=== PATIENT | female | born 2000 | race Caucasian/White ===

== ENCOUNTER 2018-01-08 08:09 | Emergency (ER) | payer OTHER ==
[2018-01-08 08:42] LABS: BILIRUBIN,URINE NEGATIVE (NEGATIVE); GLUCOSE, URINE (UA) NEGATIVE (NEGATIVE); KETONES,URINE (UA) TRACE mg/dL (NEGATIVE); LEUKOCYTE ESTERASE, URINE NEGATIVE (NEGATIVE); NITRITE,URINE NEGATIVE (NEGATIVE); OCCULT BLOOD,URINE NEGATIVE (NEGATIVE); PH,URINE 6.5 PH (5.0-7.5); PROTEIN,URINE NEGATIVE (NEGATIVE); UROBILINOGEN,URINE 0.2 (NORMAL) E.U./dL (NORMAL)
[2018-01-08 08:46] LABS: CLARITY,URINE HAZY (CLEAR); HCG UR QUAL NEGATIVE
[2018-01-08 08:54] LABS: BACTERIA,URINE Many /HPF (None Seen); MUCUS,URINE Marked Strands; RBC,URINE 0-5 /HPF (0-5); SQUAMOUS EPITHELIAL CELL,UR MANY Squamous (<= Few)
[2018-01-08 09:27] LABS: BASOPHILS # (AUTO) 0.1 10^3/uL (0.0-0.1); BASOPHILS % (AUTO) 0.7 %; EOSINOPHILS # (AUTO) 0.1 10^3/uL (0.0-0.7); EOSINOPHILS % (AUTO) 1.2 %; HGB - HEMOGLOBIN 12.7 g/dL (12.0-16.0); LYMPHOCYTES # (AUTO) 1.3 10^3/uL (1.5-3.5); LYMPHOCYTES % (AUTO) 13.2 %; MEAN CORPUSCULAR HEMOGLOBIN 30.9 pg (27.0-31.0); MEAN CORPUSCULAR HGB CONC 34.2 g/dL (32.0-36.0); MEAN CORPUSCULAR VOLUME 90.3 fL (81.0-99.0); MEAN PLATELET VOLUME 8.6 fL (7.9-10.8); MONOCYTES # (AUTO) 0.6 10^3/uL (0.0-1.0); MONOCYTES % (AUTO) 6.5 %; NEUTROPHILS # (AUTO) 7.6 10^3/uL (1.5-6.6); NEUTROPHILS % (AUTO) 78.4 %; PLT - PLATELET COUNT 230 10^3/uL (130-450); RED BLOOD COUNT 4.11 10^6/uL (4.20-5.40); RED CELL DISTRIBUTION WIDTH 12.7 % (12.0-15.0); WHITE BLOOD COUNT 9.7 x10^3/uL (4.8-10.8)
[2018-01-08 09:40] LABS: ALBUMIN 4.2 g/dL (3.2-5.5); ALBUMIN/GLOBULIN RATIO 1.2 (1.0-2.2); BILIRUBIN,TOTAL 0.6 mg/dL (0.2-1.0); CALCIUM 9.1 mg/dL (8.5-10.3); CREATININE 0.5 mg/dL (0.4-1.0); TOTAL PROTEIN 7.6 g/dL (6.7-8.2)
[2018-01-08] MEDS ORDERED: FAMOTIDINE 20 MG TABLET PO STA (09:41)
[2018-01-08] MEDS ORDERED: MAG HYDROX/AL HYDROX/SIMETH 30 ML UDC PO STA (09:41)
[2018-01-08] MEDS ORDERED: LIDOCAINE VISCOUS 2% 15 ML UDC MM STA (09:41)
--- NOTE | 2018-01-08 09:44 | ED Physician Documentation ---
History of Present Illness - Stated complaint Stated Complaint: ABD PX - Chief complaint Chief Complaint: Abd Pain - Additonal information Additional information: hx from pt 17 y/io f [place] to ER with upper abd pain today little worse with position hx GERD but this is different pain is stabbing was severe now mild no rad to chest back or shoulders no NVD Review of Systems Constitutional: denies: Fever, Chills Cardiac: denies: Chest pain / pressure Respiratory: denies: Dyspnea GI: reports: Abdominal Pain. denies: Nausea, Vomiting, Diarrhea Endocrine: denies: Easy bruising / bleeding Immunocompromised: denies: Immunocompromised PD PAST MEDICAL HISTORY - Past Surgical History Past Surgical History: No - Present Medications Home Medications: Ambulatory Orders Medication Instructions Recorded Confirmed No Known Home Medications [No 01/08/18 01/08/18 Known Home Medications] - Allergies Allergies/Adverse Reactions: Allergies Allergy/AdvReac Type Severity Reaction Status Date / Time No Known Drug Allergies Allergy Verified 01/08/18 08:26 - Social History Does the pt smoke?: No Smoking Status: Never smoker - Immunizations Immunizations are current?: Yes PD ED PE NORMAL - Vitals Vital signs reviewed: Yes - General General: Alert and oriented X 3 - HEENT HEENT: PERRL - Neck Neck: Supple, no meningeal sign - Cardiac Cardiac: RRR - Respiratory Respiratory: No respiratory distress, Clear bilaterally - Abdomen Abdomen: Soft, Other (mod TTP uper abd questionable murphys) - Derm Derm: Normal color - Extremities Extremities: No deformity - Neuro Neuro: Alert and oriented X 3 Results - Vitals Vitals: Vital Signs - 24 hr 01/08/18 01/08/18 08:21 13:53 Temperature 36.7 C 37.3 C Heart Rate 98 88 Respiratory 17 20 Rate Blood Pressure 125/71 121/73 O2 Saturation 100 100 Oxygen O2 Source Room air - Labs Labs: Laboratory Tests 01/08/18 01/08/18 01/08/18 08:20 09:19 09:19 WBC 9.7 RBC 4.11 L Hgb 12.7 Hct 37.1 MCV 90.3 MCH 30.9 MCHC 34.2 RDW 12.7 Plt Count 230 MPV 8.6 Neut # 7.6 H Lymph # 1.3 L [place] # 0.6 Eos # 0.1 Baso # 0.1 Absolute Nucleated RBC 0.01 Nucleated RBC % 0.1 Sodium 137 Potassium 3.8 Chloride 104 Carbon Dioxide 25 Anion Gap 8.0 BUN 5 L Creatinine 0.5 Estimated GFR (MDRD) 159 Glucose 103 H Calcium 9.1 Total Bilirubin 0.6 AST 17 ALT 12 Alkaline Phosphatase 60 Total Protein 7.6 Albumin 4.2 Globulin 3.4 Albumin/Globulin Ratio 1.2 Lipase 17 L Urine Color YELLOW Urine Clarity HAZY Urine pH 6.5 Ur Specific [place] 1.020 Urine Protein NEGATIVE Urine Glucose (UA) NEGATIVE Urine Ketones TRACE Urine Occult Blood NEGATIVE Urine Nitrite NEGATIVE Urine Bilirubin NEGATIVE Urine Urobilinogen 0.2 (NORMAL) Ur Leukocyte Esterase NEGATIVE Urine RBC 0-5 Urine WBC 4-5 Ur Squamous Epith Cells MANY Squamous H Urine Bacteria Many H Urine Mucus Marked Strands Ur Microscopic Review INDICATED Urine Culture Comments NOT INDICATED Urine HCG, Qual NEGATIVE - Rads (name of study) abd sono Radiology: See rad report (+ gallstones, no pericholecystic fluid or wall thickening, slightly dilated CBD but no choledocholithiasis noted) PD MEDICAL DECISION MAKING - ED course ED course: long ER stay 2/2 delay for sono sono does show gallstones dilated CBD but no choledocholithiasis, no fever, nl bili, pain has subsided feel safe to dc hoem with close outpt follwo up for elective misty pt is [place] so have number for our surgical clinic but will need to contact [facility] for [place] referral Departure - Departure Disposition: 01 Home, Self Care Clinical Impression: Biliary colic Condition: Good Instructions: ED Gallstone W Biliary Colic Follow-Up: Dieter Dickson MD [Provider Admit Priv/Credential] - [facility] [Provider Group] Comments: You have gallstone Your gallbladder is not infected so you do not need to be admitted to the hospital . But you will probably need to have surgery to take out the gallbladder. I have given you the name of one of our surgeons - but because you are [place], you need to see your base medical to get a referral In the mean time you need to stay on a strictly low fat diet to prevent aggravating the gallbladder. Return if worse - fever, severe pain, yellow skin or eyes etc
--- NOTE | 2018-01-08 13:31 | Ultrasound Report ---
RIGHT UPPER QUADRANT ULTRASOUND: 01/08/2018 CLINICAL INDICATION: Postprandial pain. TECHNIQUE: Real-time scanning was performed with sales representative aircraft static images obtained. FINDINGS: The liver measures 13 cm. Hepatic echotexture appears unremarkable. No intrahepatic biliary dilatation or focal parenchymal lesion is appreciated. The common bile duct is mildly prominent, measuring up to 8 mm. Multiple calculi are seen in the gallbladder. No wall thickening or pericholecystic fluid is present. The right kidney measures 10.2 cm, and demonstrates no hydronephrosis. No free fluid is present. IMPRESSION: CHOLELITHIASIS, WITH MILD BILIARY PROMINENCE. TD: 01/08/2018 13:30
[2018-01-08 13:54] VITALS: BP 121/73
== END 2018-01-08 14:23 | disposition home or self-care (01) ==
LOC: ED 08:09
DX: K80.50 Calculus of bile duct without cholangitis or cholecystitis without obstruction (principal)
CPT/HCPCS: 36415; 76705; 80053; 81001; 81025; 83690; 85025; 99283; A9270; 81003; 87086

== ENCOUNTER 2018-04-13 13:28 | Emergency (ER) | payer OTHER ==
--- NOTE | 2018-04-13 14:36 | ED Physician Documentation ---
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 She has been dealing with daily gallbladder pain for the last 3 months, worse after eating, it starts about 15 minutes after eating and it is an epigastric pain that is nonradiating. She has not lost any weight with it but she now feels like she cannot eat anything. She has been having a lot of trouble getting the appropriate referral to a surgeon from her flight surgeon. She declines pain medication on my initial evaluation) Review of Systems Ten Systems: 10 systems reviewed and negative Constitutional: denies: Fever, Chills Cardiac: reports: Reviewed and negative Respiratory: reports: Reviewed and negative GI: denies: Abdominal Swelling, Vomiting, Diarrhea PD PAST MEDICAL HISTORY - Past Medical History Past Medical History: No - Past Surgical History Past Surgical History: No - Present Medications Home Medications: Ambulatory Orders Medication Instructions Recorded Confirmed HYDROcod/ACETAM 5/325 [[place] 5/325] 1 - 2 ea PO Q6H PRN #15 tablet 04/13/18 - Allergies Allergies/Adverse Reactions: Allergies Allergy/AdvReac Type Severity Reaction Status Date / Time No Known Drug Allergies Allergy Verified 01/08/18 08:26 - Social History Does the pt smoke?: No Smoking Status: Never smoker Does the pt drink ETOH?: No Does the pt have substance abuse?: No - Immunizations Immunizations are current?: Yes PD ED PE NORMAL - Vitals Vital signs reviewed: Yes - General General: Alert and oriented X 3, No acute distress - Cardiac Cardiac: RRR, No murmur - Respiratory Respiratory: No respiratory distress, Clear bilaterally - Abdomen Abdomen: Normal bowel sounds, Soft, Non tender - Extremities Extremities: No edema, No calf tenderness / cord - Neuro Neuro: Alert and oriented X 3, Normal speech Results - Vitals Vitals: Vital Signs - 24 hr 04/13/18 13:48 Temperature 36.8 C Heart Rate 87 Respiratory 16 Rate Blood Pressure 121/74 O2 Saturation 99 Oxygen O2 Source Room air - Labs Labs: Laboratory Tests 04/13/18 04/13/18 04/13/18 14:40 14:40 15:04 WBC 5.7 RBC 4.56 Hgb 14.2 Hct 42.2 MCV 92.5 MCH 31.1 H MCHC 33.6 RDW 12.5 Plt Count 266 MPV 9.4 Neut # (Auto) 3.3 Lymph # (Auto) 2.0 [place] # (Auto) 0.4 Eos # (Auto) 0.1 Baso # (Auto) 0.0 Absolute Nucleated RBC 0.00 Nucleated RBC % 0.1 Sodium 139 Potassium 3.5 Chloride 105 Carbon Dioxide 28 Anion Gap 6.0 BUN 6 Creatinine 0.6 Estimated GFR (MDRD) 129 Glucose 105 H Calcium 9.4 Total Bilirubin 0.4 AST 19 ALT 16 Alkaline Phosphatase 60 Total Protein 8.2 Albumin 4.1 Globulin 4.1 Albumin/Globulin Ratio 1.0 Lipase 60 H Urine Color YELLOW Urine Clarity HAZY Urine pH 8.5 H Ur Specific [place] 1.015 Urine Protein NEGATIVE Urine Glucose (UA) NEGATIVE Urine Ketones NEGATIVE Urine Occult Blood NEGATIVE Urine Nitrite POSITIVE H Urine Bilirubin NEGATIVE Urine Urobilinogen 0.2 (NORMAL) Ur Leukocyte Esterase NEGATIVE Urine RBC None Seen Urine WBC 4-5 Ur Squamous Epith Cells RARE Squamous Urine Bacteria Moderate H Ur Microscopic Review INDICATED Urine Culture Comments INDICATED Urine HCG, Qual NEGATIVE PD MEDICAL DECISION MAKING - ED course ED course: 17-year-old with daily gallbladder colic and difficulty getting a referral. We will check some labs but at least clinically does not seem to have an indication for emergent surgery. I will try to [place] help her arrange for the appropriate referral. I spoke with Dr. 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 I also discussed the case by phone with Dr. Ventura Mata, the on-call general surgeon here in light of the very mildly elevated lipase who felt this was appropriate to be an outpatient procedure. The patient was frustrated by this, but understands what she needs to do for follow-up. Of note regarding her urinalysis, she has no symptoms of UTI, no dysuria, frequency, or flank pain. - Sepsis Event Vital Signs: Vital Signs - 24 hr 04/13/18 13:48 Temperature 36.8 C Heart Rate 87 Respiratory 16 Rate Blood Pressure 121/74 O2 Saturation 99 Oxygen O2 Source Room air Departure - Departure Disposition: 01 Home, Self Care Clinical Impression: Biliary colic Condition: Good Instructions: ED Gallstone W Biliary Colic Prescriptions: HYDROcod/ACETAM 5/325 [[place] 5/325] 1 - 2 ea PO Q6H PRN #15 tablet PRN Reason: Pain Comments: Today I spoke with Dr. Mane, who is a flight surgeon [place], he confirmed that your flight surgeon is on leave, but you can follow-up with him to get squared away. Call the [facility] today to make an appointment with him, make sure the guest services lead is aware that we spoke with him today.
[2018-04-13 14:57] LABS: BASOPHILS % (AUTO) 0.5 %; EOSINOPHILS # (AUTO) 0.1 10^3/uL (0.0-0.7); HGB - HEMOGLOBIN 14.2 g/dL (12.0-16.0); LYMPHOCYTES % (AUTO) 34.2 %; MEAN CORPUSCULAR HEMOGLOBIN 31.1 pg (27.0-31.0); MEAN CORPUSCULAR HGB CONC 33.6 g/dL (32.0-36.0); MEAN CORPUSCULAR VOLUME 92.5 fL (81.0-99.0); MEAN PLATELET VOLUME 9.4 fL (7.9-10.8); MONOCYTES # (AUTO) 0.4 10^3/uL (0.0-1.0); MONOCYTES % (AUTO) 7.3 %; NEUTROPHILS # (AUTO) 3.3 10^3/uL (1.5-6.6); PLT - PLATELET COUNT 266 10^3/uL (130-450); RED BLOOD COUNT 4.56 10^6/uL (4.20-5.40); RED CELL DISTRIBUTION WIDTH 12.5 % (12.0-15.0); WHITE BLOOD COUNT 5.7 x10^3/uL (4.8-10.8)
[2018-04-13 15:12] LABS: ALBUMIN 4.1 g/dL (3.2-5.5); BILIRUBIN,TOTAL 0.4 mg/dL (0.2-1.0); CALCIUM 9.4 mg/dL (8.5-10.3); CREATININE 0.6 mg/dL (0.4-1.0); TOTAL PROTEIN 8.2 g/dL (6.7-8.2)
[2018-04-13 15:16] LABS: BILIRUBIN,URINE NEGATIVE (NEGATIVE); GLUCOSE, URINE (UA) NEGATIVE (NEGATIVE); KETONES,URINE (UA) NEGATIVE (NEGATIVE); LEUKOCYTE ESTERASE, URINE NEGATIVE (NEGATIVE); NITRITE,URINE POSITIVE (NEGATIVE); OCCULT BLOOD,URINE NEGATIVE (NEGATIVE); PH,URINE 8.5 PH (5.0-7.5); PROTEIN,URINE NEGATIVE (NEGATIVE); UROBILINOGEN,URINE 0.2 (NORMAL) E.U./dL (NORMAL)
[2018-04-13 15:19] LABS: CLARITY,URINE HAZY (CLEAR); HCG UR QUAL NEGATIVE
[2018-04-13 15:28] LABS: BACTERIA,URINE Moderate /HPF (None Seen); RBC,URINE None Seen /HPF (0-5); SQUAMOUS EPITHELIAL CELL,UR RARE Squamous (<= Few)
[2018-04-13 15:38] VITALS: BP 136/95
== END 2018-04-13 15:46 | disposition home or self-care (01) ==
LOC: ED 13:28
DX: K80.50 Calculus of bile duct without cholangitis or cholecystitis without obstruction (principal)
CPT/HCPCS: 36415; 80053; 81001; 81003; 81025; 83690; 85025; 87086; 87181; 99283

== ENCOUNTER 2018-05-17 06:11 | Day surgery (SDC) | payer OTHER ==
[2018-05-17] MEDS ORDERED: ceFAZolin 2 GM/50 ML 2 GM/50 ML BAG IV ONE (06:41)
[2018-05-17] MEDS ORDERED: LACTATED RINGERS 1,000 ML IV ONE ×2 (07:17→10:20)
[2018-05-17] MEDS ORDERED: BUPIVACAINE 0.5%-EPI 1:200000 PF 30 ML VIAL ONE (07:27)
[2018-05-17] MEDS ORDERED: IOTHALAMATE MEGLUMINE 50 ML VIAL ONE (07:30)
[2018-05-17 07:31] LABS: HCG UR QUAL NEGATIVE
[2018-05-17] MEDS ORDERED: ROCURONIUM 50 MG/5 ML VIAL IVP ONE (08:00)
[2018-05-17] MEDS ORDERED: PROPOFOL 200 MG/20 ML VIAL IVP ONE (08:00)
[2018-05-17] MEDS ORDERED: GLYCOPYRROLATE 1 MG/5 ML VIAL IVP ONE (08:00)
[2018-05-17] MEDS ORDERED: ONDANSETRON 4 MG/2 ML VIAL IVP ONE (08:00)
[2018-05-17] MEDS ORDERED: LIDOCAINE-MPF 2% 5 ML VIAL IM ONE (08:00)
[2018-05-17] MEDS ORDERED: KETOROLAC 30 MG/ML VIAL IVP ONE (08:00)
[2018-05-17] MEDS ORDERED: DEXAMETHASONE 4 MG/ML VIAL IVP ONE (08:00)
[2018-05-17] MEDS ORDERED: NEOSTIGMINE 1 MG/1 ML 10 ML MDV IVP ONE (08:00)
[2018-05-17] MEDS ORDERED: MIDAZOLAM 2 MG/2 ML VIAL IVP ONE (08:00)
[2018-05-17] MEDS ORDERED: fentaNYL 100 MCG/2 ML VIAL IVP ONE (08:00)
[2018-05-17] MEDS ORDERED: BUPIVACAINE 0.5% PF 30 ML VIAL INFIL ONE ×2 (08:09)
[2018-05-17] MEDS ORDERED: IOTHALAMATE MEGLUMINE 50 ML VIAL IVP ONE ×2 (08:21)
--- NOTE | 2018-05-17 11:09 | XRAY Report ---
Procedure Date: 05/17/2018 Accession Number: [id number] / [id number] Procedure: [place] - OR Cholangiogram CPT Code: FULL RESULT: EXAM: OR Cholangiogram DATE: 05/17/2018 9:08 AM CLINICAL HISTORY: CHOLECYSTITIS COMPARISON: None. TECHNIQUE: Dr. Shubham Mata performed the procedure. Please see the operative notes for details. Fluoroscopic exposure time: 0.24 minutes. Number of fluoroscopic images: 4. IMPRESSION: A catheter has been placed into the cystic duct remnant following cholecystectomy. Cholangiography shows opacification of the proximal bile ducts. Visualized ducts show no filling defects. Note is made of a subjectively enlarged caliber common bile duct; images are not calibrated for measurements. Spill of contrast into the duodenum documented. RADIA
[2018-05-17 11:28] VITALS: BP 115/65
--- NOTE | 2018-05-17 11:49 | OPERATIVE REPORT ---
DATE OF SERVICE: 05/17/2018 Physician: Shubham Mata MD PREOPERATIVE DIAGNOSIS: Symptomatic gallbladder disease. POSTOPERATIVE DIAGNOSIS: Symptomatic gallbladder disease. PROCEDURE PERFORMED: Laparoscopic cholecystectomy with intraoperative cholangiogram. ANESTHESIA: General endotracheal by Octavio Singleton CRNA. SURGEON: Shubham Mata MD ESTIMATED BLOOD LOSS: Minimal. DRAINS: None. COMPLICATIONS: None. FINDINGS: Laparoscopy revealed normal-appearing liver, stomach and visualized portion of small and large bowel. The gallbladder was seen to have mild pericholecystic adhesions. The cystic duct was of normal caliber. The common duct appeared to be dilated and approximately a centimeter in diameter. Following resection, the gallbladder was seen to contain approximately twenty 10 mm multifaceted mixed cholesterol stones. Cystic duct cholangiography was notable for free flow of contrast into the duodenum. No filling defects, and no other anatomic abnormalities. INDICATIONS: The patient is a 17-year-old woman with 6-month history of postprandial epigastric abdominal pain. Evaluations included ultrasonography showing presence of cholelithiasis and a borderline dilated common bile duct at 8 mm. She was felt to be suffering from symptomatic cholelithiasis, and advised undergo laparoscopic cholecystectomy with possible cholangiogram. TECHNIQUE: After informed consent, the patient was taken to the operating room where she was placed under general endotracheal anesthesia. Preoperative preparation included application of sequential calf compression boots, administration of 2 grams cefazolin intravenously within an hour of the incision. Her abdomen was prepared with ChloraPrep solution and draped in the usual sterile fashion. Transverse incision made along the inferior edge of the umbilicus and carried down through the layers of the abdominal wall, until the peritoneum was identified and entered sharply. A 10 mm [place] cannula was inserted. Pneumoperitoneum was achieved with carbon dioxide , and a 10 mm 30-degree Honorio telescope was inserted. Laparoscopy was carried out. Findings noted above. Three additional 5 mm ports were placed in the right upper quadrant. Instruments were passed. The gallbladder was grasped and retracted in a cephalad and lateral direction exposing the cystic triangle of [place]. This region was carefully dissected using Hook electrocautery, isolating the cystic duct and artery adjacent to the gallbladder. The critical view of safety was obtained. The cystic duct was clipped at its junction with the gallbladder. An incision made distal to the clip in the cystic duct. A [place] cholangiogram catheter was inserted, and cholangiography was carried out using a 50:50 combination of [place] in sterile saline. Quality of the study was good. There were no apparent complications. Approximately 20 mL of the mixture was used. Findings were as noted above. The cholangiogram catheter was then removed. Cystic duct triply clipped distally doubly proximally and divided between, completely at the point of incision. The cystic artery was also divided between two sets of clips. The gallbladder was excised from the liver bed using electrocautery for dissection and hemostasis. It was detached intact, placed in an organ retrieval bag, extracted and sent for pathologic evaluation. After hemostasis was assured, the right upper quadrant was copiously irrigated with saline solution, following which instruments and cannulas were removed under direct vision. Pneumoperitoneum was allowed to escape, and the incisions were closed in layers using continuous 0 Vicryl, reapproximated the midline fascia at the umbilicus, followed by 4-0 Monocryl subcuticular skin closures, followed by Dermabond. A total of 20 mL 0.5% Marcaine with epinephrine was infiltrated into the incisions to assist in postoperative analgesia. Anesthesia was terminated. The patient was transferred to the recovery room in satisfactory condition. Sponge and needle counts were correct x2. No drains were used. TD: 05/17/2018 10:19 [email or web address]
== END 2018-05-17 06:12 | disposition home or self-care (01) ==
LOC: SDS 06:11
PROVIDERS: ATTEND Internal Medicine Gastroenterology
PROC: BF130ZZ Fluoroscopy of Gallbladder and Bile Ducts using High Osmolar Contrast (ICD-10-PCS; 2018-05-17)
PROC: 0FT44ZZ Resection of Gallbladder, Percutaneous Endoscopic Approach (ICD-10-PCS; principal; 2018-05-17 07:30)
DX: K80.10 Calculus of gallbladder with chronic cholecystitis without obstruction (principal)
CPT/HCPCS: 47563; 74300; 81025; C1758; J0690; J7120; Q9961